=== PATIENT | female | born 1980 | race American Indian/Alaskan Native ===

== ENCOUNTER 2018-06-25 15:03 | Emergency (ER) | payer SELFPAY ==
[2018-06-25 16:33] VITALS: BP 125/74
[2018-06-25] MEDS ORDERED: DECADRON IM STA (19:23)
--- NOTE | 2018-06-25 19:23 | Emergency Department Report ---
HPI - General Chief Complaint: Allergic Reaction Time Seen by Provider: 06/25/18 18:45 - HPI HPI: This is a 38-year-old female here reports that she has allergic reaction yesterday. 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 She had all an allergic reaction. She said after she ate the chicken and because she is allergic to shellfish she had an allergic reaction where she had some tingling to her lips and she used her EpiPen but when she woke up this morning and she had swelling around her right eye and some itching at the tip of her tongue. She reported that she had hives and right facial swelling yesterday and it resolved with EpiPen. Patient says she is allergic to Benadryl which makes her swell. She denies any shortness of breath, chest pain, cough, wheezing or stridor present. Denies any swelling the tongue or closing of throat. Denies any problem with controlling her secretion. Denies any swelling of her neck. She says she now has lingering H into the tip of her tongue and swelling around her eye. Patient denies any pain. ED Past Medical Hx - Past Medical History Previous Medical History?: No - Surgical History Past Surgical History?: No - Family History Family history: hypertension - Social History Smoking Status: Never Smoker Substance Use Type: None - Medications Home Medications: Home Medications Medication Instructions Recorded Confirmed Last Taken Type EPINEPHrine [Epipen] 0.3 mg IJ ONCE PRN #1 auto.injct 06/25/18 Unknown Rx Famotidine [Pepcid] 20 mg PO BID 6 Days #12 tablet 06/25/18 Unknown Rx predniSONE [Prednisone] 10 mg PO QAM 6 Days #1 tab.ds.pk 06/25/18 Unknown Rx ED Review of Systems ROS: Stated complaint: ALLERGIC REACTION Other details as noted in HPI Constitutional: denies: chills, fever Eyes: other (swelling around right eye). denies: eye pain, eye discharge, vision change ENT: denies: ear pain, throat pain, epistaxis, congestion Respiratory: denies: cough, orthopnea, shortness of breath, SOB with exertion, SOB at rest, stridor, wheezing Cardiovascular: denies: chest pain, palpitations, dyspnea on exertion, orthopnea , edema, syncope, paroxysmal nocturnal dyspnea Gastrointestinal: denies: nausea, vomiting Genitourinary: denies: discharge Musculoskeletal: denies: back pain, joint swelling, arthralgia, myalgia Skin: pruritus (anterior tongue). denies: rash, lesions Neurological: denies: headache, weakness, numbness, paresthesias, confusion, abnormal gait, vertigo Psychiatric: denies: anxiety, depression Hematological/Lymphatic: denies: easy bleeding, easy bruising Physical Exam - Physical Exam Vital Signs: Vital Signs 06/25/18 16:28 Temperature 98.5 F Pulse Rate 72 Respiratory 16 Rate Blood Pressure 125/74 O2 Sat by Pulse 100 Oximetry General: This is a 38-year-old female well-nourished well-developed in no acute distress. Patient is nontoxic in appearance Physical Exam: Head: Normocephalic atraumatic. Scalp examination and normal. Nontender to palpate. No abrasion, contusion or hematoma noted. Mouth: Oral mucosa moist, tongue is normal, uvula is midline, no SOLE TRIMMER or drooling , oral airways patent and uvula is midline. Neck: No breathing or stridor. Supple, no tracheal deviation, no lymphadenopathy and full range of motion Eyes: Bilateral pupils equal and reactive to light, bilateral EOM intact, no nystagmus. No scleral or conjunctival injection. Minimal swelling surrounding in periorbital area without any ecchymosis. Lips are normal. Ears: Bilateral TMs pearly gonzales and bilateral EAC normal exam.no mastoid bone tenderness. Nose: Nasal mucosa without any erythema or swelling or drainage. Bilateral frontal and mastoid sinuses nontender to palpate. Nasal septum normal and nontender to palpate Lungs: Clear to auscultation bilaterally, no rhonchi wheezes or rales. No work of breathing CV: S1, S2. Regular rate rhythm negative murmur Skin: Clean dry and intact, no rash no lesions. Psych: Normal mood and behavior ED Course Vital Signs 06/25/18 16:28 Temperature 98.5 F Pulse Rate 72 Respiratory 16 Rate Blood Pressure 125/74 O2 Sat by Pulse 100 Oximetry - Reevaluation(s) Reevaluation #1: 06/25/18 19:32 Patient received Decadron 10 mg IM and emergency room for allergic reaction ED Medical Decision Making - Medical Decision Making This is a 38-year-old that suspect that she was exposed to shellfish from oral that takeout food was cooked in. She said this happened yesterday and she used her EpiPen which helped but she still has lingering swelling around her right eye and swelling to the tip of her tongue. Assessment/plan Minor allergic reaction-patient is stable. Oral exam is normal to include tongue and she has minimal swelling around her right eye. She was given Decadron 10 mg IM in emergency room. I did not give her Benadryl because she says she is allergic to Benadryl. Patient observed in emergency room and stable. I will refill EpiPen and send her home on Pepcid and prednisone Dosepak. I Discussed with patient her diagnosis, treatment plan and that her symptoms return she needs to return to emergency room [facility]. Patient voiced understanding. Patient is stable, vital signs stable she is afebrile and she is nontoxic in appearance. Discharge home in stable condition with her family with prescription for Pepcid, prednisone Dosepak and EpiPen. She is to follow up with her primary care physician in 2 days Critical care attestation.: If time is entered above; I have spent that time in minutes in the direct care of this critically ill patient, excluding procedure time. ED Disposition Clinical Impression: Minor allergic reaction Qualifiers: Encounter type: initial encounter Qualified Code(s): T78.40XA - Allergy, unspecified, initial encounter Disposition: TO HOME OR SELFCARE Is pt being admited?: No Does the pt Need Aspirin: No Condition: Stable Instructions: Allergies (ED), Food Allergy (ED) Additional Instructions: Take medication as prescribed follow up with PCP in 2 days if he do not have a primary care he can follow-up with [facility] Take prednisone Dosepak and Pepcid as prescribed if you develop any facial swelling, swelling of the tongue, lips, wheezing, stridor, difficulty breathing, coughing, chest pain and increase in rash please return to the emergency room [facility] otherwise follow up with shirt cleaner tomorrow. Referrals: PRIMARY CAREMD [Primary Care Provider] - 06/27/18 [facility] [Outside] - 06/27/18 Forms: Work/School Release Form(ED)
== END 2018-06-25 19:45 | disposition home or self-care (01) ==
LOC: ED 15:03
DX: T78.40XA Allergy, unspecified, initial encounter (principal); R20.2 Paresthesia of skin; L29.9 Pruritus, unspecified; Z91.013 Allergy to seafood; Z88.8 Allergy status to other drugs, medicaments and biological substances; X58.XXXA Exposure to other specified factors, initial encounter
CPT/HCPCS: 96372; 99282; J1100